=== PATIENT | female | born 1960 | race Caucasian/White ===

== ENCOUNTER 2021-12-01 13:31 | Emergency (ER) | payer MEDICARE, OTHER ==
[2021-12-01] MEDS ORDERED: methylPREDNISolone Sod Succ/PF 125 MG/2 ML VIAL ONE (14:16)
[2021-12-01 14:48] LABS: #Eosinphils 0.1 thou/uL (0.0-0.7); #Lymphocytes 1.2 thou/uL (1.20-3.40); #Monocytes 0.5 thou/uL (0.11-0.59); %Basophils 0.2 % (0.0-1.0); %Eosinophils 2.8 % (0.0-10.0); %Monocytes 10.1 % (0.0-10.0); %Neutrophils 61.8 % (42.0-75.0); Hemoglobin 15.8 g/dL (12.0-16.0); Mean Corpuscular HGB CONC 32.8 g/dL (32.0-36.0); Mean Corpuscular Hemoglobin 33.3 pg (27.0-31.0); Mean Platelet Volume 7.1 fL (7.4-10.4); Platelet Count 217 thou/uL (130-400); RBC Distribution Width 12.6 % (11.5-14.5); Red Blood Cell (RBC) Count 4.73 mill/uL (4.20-5.40); White Blood Cell (WBC) Count 4.8 thou/uL (4.8-10.8)
[2021-12-01 15:01] LABS: ALT (SGPT) 16 U/L (8-55); AST (SGOT) 21 U/L (5-34); Albumin 3.7 g/dL (3.5-5.0); Alkaline Phosphatase 67 U/L (40-110); Anion Gap 15 mmol/L (10-20); BUN (Urea Nitrogen) 12 mg/dL (9.8-20.1); Bilirubin, Total 0.8 mg/dL (0.2-1.2); Calc. Creatinine Clearance 0 mL/min (70-130); Calcium 9.3 mg/dL (7.8-10.44); Carbon Dioxide 21 mmol/L (22-29); Chloride 106 mmol/L (98-107); Globulin 2.6 g/dL (2.4-3.5); Glucose 96 mg/dL (70-105); Lipase Less than 4 U/L (8-78); Protein, Total 6.3 g/dL (6.0-8.3); Sodium 138 mmol/L (136-145)
[2021-12-01 15:06] LABS: PTT 24.7 sec (22.9-36.1)
[2021-12-01 15:07] LABS: D-Dimer Test 0.68 *mcg/mL (0.27-0.43)
[2021-12-01 16:59] LABS: SARS-CoV-2 NAA Rapid Test Not Detected (NotDetected)
== END 2021-12-01 18:13 | disposition home or self-care (01) ==
LOC: ERS 13:31
DX: J18.9 Pneumonia, unspecified organism (principal); I10 Essential (primary) hypertension; Z20.822 Contact with and (suspected) exposure to COVID-19; Z87.891 Personal history of nicotine dependence
CPT/HCPCS: 0240U; 71045; 71275; 83690; 83880; 84484 ×2; 85379; 85610; 85730; 93005; 96374; 99285; 36415; 80053; 84443; 85025; J2930; J7620

== ENCOUNTER 2021-12-12 11:14 | Emergency (ER) | payer MEDICARE, OTHER ==
[2021-12-12] MEDS ORDERED: Acetaminophen 500 MG TAB ONE (13:15)
== END 2021-12-12 14:29 | disposition home or self-care (01) ==
LOC: ERS 11:14
DX: M79.671 Pain in right foot (principal); M54.50 Low back pain, unspecified; M79.89 Other specified soft tissue disorders; I11.0 Hypertensive heart disease with heart failure; I50.9 Heart failure, unspecified; J44.9 Chronic obstructive pulmonary disease, unspecified; I10 Essential (primary) hypertension; D64.9 Anemia, unspecified; Z87.891 Personal history of nicotine dependence

== ENCOUNTER 2021-12-17 22:50 | Inpatient (IN) | payer MEDICARE, MEDICAID ==
[2021-12-17 23:38] LABS: #Eosinphils 0.2 thou/uL (0.0-0.7); #Lymphocytes 1.1 thou/uL (1.20-3.40); #Monocytes 0.5 thou/uL (0.11-0.59); #Neutrophils 6.3 thou/uL (1.40-6.50); %Basophils 0.4 % (0.0-1.0); %Eosinophils 2.4 % (0.0-10.0); %Lymphocytes 13.9 % (21.0-51.0); %Monocytes 5.5 % (0.0-10.0); %Neutrophils 77.8 % (42.0-75.0); Hemoglobin 14.7 g/dL (12.0-16.0); Mean Corpuscular Hemoglobin 34.1 pg (27.0-31.0); Mean Platelet Volume 6.5 fL (7.4-10.4); Platelet Count 259 thou/uL (130-400); RBC Distribution Width 12.3 % (11.5-14.5); White Blood Cell (WBC) Count 8.1 thou/uL (4.8-10.8)
[2021-12-17 23:59] LABS: ALT (SGPT) 10 U/L (8-55); AST (SGOT) 15 U/L (5-34); Albumin 3.9 g/dL (3.5-5.0); Alkaline Phosphatase 72 U/L (40-110); Anion Gap 14 mmol/L (10-20); BUN (Urea Nitrogen) 11 mg/dL (9.8-20.1); Bilirubin, Total 0.8 mg/dL (0.2-1.2); Calc. Creatinine Clearance 0 mL/min (70-130); Calcium 8.8 mg/dL (7.8-10.44); Carbon Dioxide 24 mmol/L (22-29); Chloride 105 mmol/L (98-107); Globulin 2.2 g/dL (2.4-3.5); Glucose 132 mg/dL (70-105); Potassium 4.1 mmol/L (3.5-5.1); Protein, Total 6.1 g/dL (6.0-8.3); Sodium 139 mmol/L (136-145)
[2021-12-18] MEDS ORDERED: methylPREDNISolone Sod Succ/PF 125 MG/2 ML VIAL ONE (02:15)
[2021-12-18 03:31] VITALS: BMI 46.5
[2021-12-18] MEDS ORDERED: Morphine 4 MG/ML VIAL SLOW IVP PRN (03:32)
[2021-12-18] MEDS ORDERED: Calcium Carbonate 500 MG ChewTAB PO PRN (07:41)
[2021-12-18] MEDS ORDERED: Ondansetron PF 4 MG/2 ML Vial IVP PRN (07:41)
[2021-12-18] MEDS ORDERED: Acetaminophen 325 MG TAB PO PRN (07:41)
[2021-12-18] MEDS ORDERED: Ipratropium Bromide 2.5 ml Neb NEB PRN (07:44)
[2021-12-18] MEDS ORDERED: Non-Formulary Item 1 EACH (Albuterol Sulfate [Proair Hfa] 8.5 GM Hfa.Aer.Ad) INH PRN (07:49)
[2021-12-18] MEDS ORDERED: Albuterol 200 PUFF (6.7GM INHALER) INH PRN (08:01)
[2021-12-18] MEDS ORDERED: BIOTIN 1000 MCG PO SCH ×2 (09:00)
[2021-12-18] MEDS ORDERED: Non-Formulary Item 1 EACH (Tiotropium Bromide 4 GM Inhaler) IH SCH (09:00)
[2021-12-18] MEDS ORDERED: Metoprolol Tartrate 100 MG TAB PO SCH (09:00)
[2021-12-18] MEDS: Enoxaparin Sodium 40 MG/0.4 ML SYRINGE SC SCH (09:37)
[2021-12-18] MEDS: methylPREDNISolone Sod Succ 40 MG VIAL IVP SCH ×2 (09:38→21:33)
[2021-12-18] MEDS: Furosemide 40 MG/4 ML VIAL SLOW IVP SCH (09:38)
[2021-12-18] MEDS: Estradiol 1 MG TAB PO SCH (09:39)
[2021-12-18] MEDS: Fenofibrate 48 MG TAB PO SCH (09:39)
[2021-12-18] MEDS: Doxycycline 100 MG CAP PO SCH ×2 (09:39→21:33)
[2021-12-18] MEDS: Ascorbic Acid 500 mg Chewable Tablet PO SCH (09:39)
[2021-12-18] MEDS: Aspirin Chewable 81 MG TAB PO SCH (09:39)
[2021-12-18] MEDS: Gabapentin 300 MG CAP PO SCH ×2 (09:40→21:32)
[2021-12-18] MEDS: Metoprolol Tartrate 50 MG TAB PO SCH ×2 (09:41→21:32)
[2021-12-18 10:01] LABS: Troponin I Less than 0.010 ng/mL (< 0.028)
[2021-12-18] MEDS: HYDROcodone/Acetaminophen 5/325 mg Tablet PO PRN ×2 (10:08→21:30)
[2021-12-18] MEDS: Ipratropium Bromide 2.5 ml Neb NEB SCH ×4 (10:20→23:10)
[2021-12-18 15:12] LABS: SARS-CoV-2 PCR by NAA Not Detected (NotDetected)
[2021-12-18] MEDS: hydrALAZINE 20 MG/ML VIAL SLOW IVP PRN ×2 (16:55→21:41)
[2021-12-18] MEDS ORDERED: Fluticasone Propionate Nasal Spray 16 gm Bottle NASAL PRN (20:36)
[2021-12-18] MEDS: DULoxetine 60 MG CAP PO SCH (21:31)
[2021-12-18] MEDS: traZODone HCl 150 MG TAB PO SCH (21:54)
[2021-12-19] MEDS: Ipratropium Bromide 2.5 ml Neb NEB SCH ×6 (03:45→23:21)
[2021-12-19 04:36] LABS: #Lymphocytes 0.7 thou/uL (1.20-3.40); #Monocytes 0.3 thou/uL (0.11-0.59); #Neutrophils 9.8 thou/uL (1.40-6.50); %Eosinophils 0.3 % (0.0-10.0); %Lymphocytes 6.2 % (21.0-51.0); %Monocytes 3.1 % (0.0-10.0); %Neutrophils 90.4 % (42.0-75.0); Mean Corpuscular Hemoglobin 32.8 pg (27.0-31.0); Mean Platelet Volume 6.8 fL (7.4-10.4); Platelet Count 259 thou/uL (130-400); RBC Distribution Width 12.1 % (11.5-14.5); Red Blood Cell (RBC) Count 4.56 mill/uL (4.20-5.40); White Blood Cell (WBC) Count 10.8 thou/uL (4.8-10.8)
[2021-12-19 04:58] LABS: Anion Gap 12 mmol/L (10-20); BUN (Urea Nitrogen) 18 mg/dL (9.8-20.1); Calc. Creatinine Clearance 111 mL/min (70-130); Calcium 9.5 mg/dL (7.8-10.44); Carbon Dioxide 28 mmol/L (22-29); Chloride 102 mmol/L (98-107); Glucose 170 mg/dL (70-105); Potassium 3.9 mmol/L (3.5-5.1); Sodium 138 mmol/L (136-145)
[2021-12-19] MEDS: Levothyroxine Sodium 100 MCG TAB PO SCH (05:24)
[2021-12-19] MEDS ORDERED: IRON 18 MG PO SCH (08:00)
[2021-12-19] MEDS: Enoxaparin Sodium 40 MG/0.4 ML SYRINGE SC SCH (10:14)
[2021-12-19] MEDS: Doxycycline 100 MG CAP PO SCH ×2 (10:14→20:53)
[2021-12-19] MEDS: Estradiol 1 MG TAB PO SCH (10:15)
[2021-12-19] MEDS: Ascorbic Acid 500 mg Chewable Tablet PO SCH (10:15)
[2021-12-19] MEDS: Fenofibrate 48 MG TAB PO SCH (10:15)
[2021-12-19] MEDS: Aspirin Chewable 81 MG TAB PO SCH (10:15)
[2021-12-19] MEDS: Furosemide 40 MG/4 ML VIAL SLOW IVP SCH (10:15)
[2021-12-19] MEDS: Gabapentin 300 MG CAP PO SCH ×2 (10:26→20:53)
[2021-12-19] MEDS: methylPREDNISolone Sod Succ 40 MG VIAL IVP SCH ×2 (10:27→20:54)
[2021-12-19] MEDS: Metoprolol Tartrate 50 MG TAB PO SCH ×2 (10:27→20:53)
[2021-12-19] MEDS: HYDROcodone/Acetaminophen 5/325 mg Tablet PO PRN ×2 (15:28→20:56)
[2021-12-19] MEDS: DULoxetine 60 MG CAP PO SCH (20:53)
[2021-12-19] MEDS: traZODone HCl 150 MG TAB PO SCH (20:54)
[2021-12-20] MEDS: Ipratropium Bromide 2.5 ml Neb NEB SCH ×6 (03:35→22:46)
[2021-12-20] MEDS: Levothyroxine Sodium 100 MCG TAB PO SCH (06:32)
[2021-12-20] MEDS: Aspirin Chewable 81 MG TAB PO SCH (12:16)
[2021-12-20] MEDS: Furosemide 40 MG/4 ML VIAL SLOW IVP SCH (12:16)
[2021-12-20] MEDS: methylPREDNISolone Sod Succ 40 MG VIAL IVP SCH ×2 (12:16→19:14)
[2021-12-20] MEDS: Enoxaparin Sodium 40 MG/0.4 ML SYRINGE SC SCH (12:17)
[2021-12-20] MEDS: Estradiol 1 MG TAB PO SCH (12:17)
[2021-12-20] MEDS: Gabapentin 300 MG CAP PO SCH ×2 (12:17→19:09)
[2021-12-20] MEDS: Fenofibrate 48 MG TAB PO SCH (12:18)
[2021-12-20] MEDS: Metoprolol Tartrate 50 MG TAB PO SCH ×2 (12:18→19:14)
[2021-12-20] MEDS: Doxycycline 100 MG CAP PO SCH ×2 (12:18→19:14)
[2021-12-20] MEDS: Ascorbic Acid 500 mg Chewable Tablet PO SCH (12:18)
[2021-12-20] MEDS: HYDROcodone/Acetaminophen 5/325 mg Tablet PO PRN (19:09)
[2021-12-20] MEDS: DULoxetine 60 MG CAP PO SCH (19:14)
[2021-12-20] MEDS: traZODone HCl 150 MG TAB PO SCH (19:14)
[2021-12-21] MEDS: Ipratropium Bromide 2.5 ml Neb NEB SCH ×6 (03:48→23:19)
[2021-12-21] MEDS: Levothyroxine Sodium 100 MCG TAB PO SCH (06:15)
[2021-12-21] MEDS: Fenofibrate 48 MG TAB PO SCH (10:09)
[2021-12-21] MEDS: Gabapentin 300 MG CAP PO SCH ×2 (10:09→19:11)
[2021-12-21] MEDS: Estradiol 1 MG TAB PO SCH (10:10)
[2021-12-21] MEDS: Furosemide 40 MG/4 ML VIAL SLOW IVP SCH (10:10)
[2021-12-21] MEDS: Doxycycline 100 MG CAP PO SCH ×2 (10:10→19:11)
[2021-12-21] MEDS: Metoprolol Tartrate 50 MG TAB PO SCH ×2 (10:10→19:11)
[2021-12-21] MEDS: Ascorbic Acid 500 mg Chewable Tablet PO SCH (10:10)
[2021-12-21] MEDS: Aspirin Chewable 81 MG TAB PO SCH (10:10)
[2021-12-21] MEDS: methylPREDNISolone Sod Succ 40 MG VIAL IVP SCH ×2 (10:10→19:12)
[2021-12-21] MEDS: Enoxaparin Sodium 40 MG/0.4 ML SYRINGE SC SCH (10:10)
[2021-12-21] MEDS: HYDROcodone/Acetaminophen 5/325 mg Tablet PO PRN ×3 (10:22→20:39)
[2021-12-21] MEDS: hydrALAZINE 20 MG/ML VIAL SLOW IVP PRN (17:22)
[2021-12-21] MEDS: DULoxetine 60 MG CAP PO SCH (19:11)
[2021-12-21] MEDS: traZODone HCl 150 MG TAB PO SCH (19:11)
[2021-12-22] MEDS: Ipratropium Bromide 2.5 ml Neb NEB SCH ×4 (03:54→15:10)
[2021-12-22] MEDS: Levothyroxine Sodium 100 MCG TAB PO SCH (06:32)
[2021-12-22] MEDS: Aspirin Chewable 81 MG TAB PO SCH (09:38)
[2021-12-22] MEDS: Estradiol 1 MG TAB PO SCH (09:38)
[2021-12-22] MEDS: Gabapentin 300 MG CAP PO SCH (09:38)
[2021-12-22] MEDS: Doxycycline 100 MG CAP PO SCH (09:39)
[2021-12-22] MEDS: Ascorbic Acid 500 mg Chewable Tablet PO SCH (09:39)
[2021-12-22] MEDS: Enoxaparin Sodium 40 MG/0.4 ML SYRINGE SC SCH (09:39)
[2021-12-22] MEDS: Fenofibrate 48 MG TAB PO SCH (09:39)
[2021-12-22] MEDS: Metoprolol Tartrate 50 MG TAB PO SCH (09:39)
[2021-12-22] MEDS: methylPREDNISolone Sod Succ 40 MG VIAL IVP SCH (09:40)
[2021-12-22] MEDS: HYDROcodone/Acetaminophen 5/325 mg Tablet PO PRN (10:06)
[2021-12-22] MEDS: Furosemide 40 MG/4 ML VIAL SLOW IVP SCH (10:07)
[2021-12-22 13:31] VITALS: BP 142/84; TEMP 98.6
== END 2021-12-22 15:45 | disposition home or self-care (01) | DRG 189 ==
LOC: ERS 22:50 → 2NO 12-18 02:10
PROVIDERS: ADMIT Internal Medicine; ATTEND Internal Medicine
DX: J96.21 Acute and chronic respiratory failure with hypoxia (principal); J44.1 Chronic obstructive pulmonary disease with (acute) exacerbation; N17.9 Acute kidney failure, unspecified; Z20.822 Contact with and (suspected) exposure to COVID-19; I34.0 Nonrheumatic mitral (valve) insufficiency; E89.0 Postprocedural hypothyroidism; F12.10 Cannabis abuse, uncomplicated; Z60.2 Problems related to living alone; M79.7 Fibromyalgia; F41.9 Anxiety disorder, unspecified; F32.A Depression, unspecified; Z87.891 Personal history of nicotine dependence; Z90.49 Acquired absence of other specified parts of digestive tract; Z99.81 Dependence on supplemental oxygen; Z88.0 Allergy status to penicillin; Z79.899 Other long term (current) drug therapy; Z79.82 Long term (current) use of aspirin; Z79.890 Hormone replacement therapy; Z98.890 Other specified postprocedural states; Z82.49 Family history of ischemic heart disease and other diseases of the circulatory system; Z83.6 Family history of other diseases of the respiratory system
CPT/HCPCS: 36415; 71045; 71275; 80048; 80053; 83880; 84443; 84484; 85025; 85379; 93005; 93306; 93970; 94640; 96365; 96375; J0360; J1650; J1940; J1956; J2270; J2920; J2930; U0003; U0005

== ENCOUNTER 2022-02-24 11:04 | Inpatient (IN) | payer OTHER, MEDICAID ==
[2022-02-24 11:41] LABS: #Lymphocytes 0.5 thou/uL (1.20-3.40); #Monocytes 0.3 thou/uL (0.11-0.59); #Neutrophils 2.4 thou/uL (1.40-6.50); %Basophils 0.2 % (0.0-1.0); %Eosinophils 0.6 % (0.0-10.0); %Lymphocytes 14.4 % (21.0-51.0); %Monocytes 8.1 % (0.0-10.0); %Neutrophils 76.7 % (42.0-75.0); Hemoglobin 15.1 g/dL (12.0-16.0); Mean Corpuscular HGB CONC 31.2 g/dL (32.0-36.0); Mean Corpuscular Hemoglobin 31.9 pg (27.0-31.0); Mean Platelet Volume 7.3 fL (7.4-10.4); Platelet Count 185 thou/uL (130-400); RBC Distribution Width 12.2 % (11.5-14.5); Red Blood Cell (RBC) Count 4.72 mill/uL (4.20-5.40); White Blood Cell (WBC) Count 3.2 thou/uL (4.8-10.8)
[2022-02-24 11:54] LABS: ALT (SGPT) 11 U/L (8-55); AST (SGOT) 17 U/L (5-34); Albumin 4.2 g/dL (3.4-4.8); Alkaline Phosphatase 72 U/L (40-110); Anion Gap 14 mmol/L (10-20); BUN (Urea Nitrogen) 8 mg/dL (9.8-20.1); Bilirubin, Total 0.5 mg/dL (0.2-1.2); Calc. Creatinine Clearance 0 mL/min (70-130); Calcium 9.3 mg/dL (7.8-10.44); Carbon Dioxide 28 mmol/L (23-31); Chloride 99 mmol/L (98-107); Estimated GFR 75; Globulin 2.9 g/dL (2.4-3.5); Glucose 90 mg/dL (80-115); Lipase 9 U/L (8-78); Potassium 4.5 mmol/L (3.5-5.1); Protein, Total 7.1 g/dL (5.8-8.1); Sodium 136 mmol/L (136-145)
[2022-02-24] MEDS ORDERED: diphenhydrAMINE 50 MG/ML VIAL ONE (12:08)
[2022-02-24] MEDS ORDERED: Metoclopramide HCl 10 MG/2 ML VIAL ONE (12:08)
[2022-02-24] MEDS ORDERED: Acetaminophen 500 MG TAB ONE (12:08)
[2022-02-24 14:24] LABS: Bilirubin Negative (Negative); Blood, Urine Negative (Negative); Clarity Clear (Clear); Glucose, Urine (Dipstick) Normal (Negative); Ketone, Urine Negative (Negative); Leukocyte Negative Leu/uL (Negative); Nitrite Negative (Negative); Protein, Urine (Dipstick) Negative (Neg-Trace); Specific Gravity, Urine 1.008 (1.002-1.036); Urobilinogen Normal mg/dL (Less than 2); pH, Urine 6.5 (5.0-9.0)
[2022-02-24 14:33] LABS: SARS-CoV-2 NAA Rapid Test DETECTED (NotDetected)
[2022-02-24] MEDS ORDERED: guaiFENesin 200 MG TAB PO PRN (17:15)
[2022-02-24] MEDS ORDERED: Ondansetron PF 4 MG/2 ML Vial IVP PRN (17:20)
[2022-02-24] MEDS ORDERED: Senokot S 8.6-50 MG TAB PO PRN (17:20)
[2022-02-24] MEDS ORDERED: Ondansetron ODT 4 MG TAB PO PRN (17:20)
[2022-02-24] MEDS ORDERED: Cefepime 2 GM VIAL ONE (17:21)
[2022-02-24] MEDS ORDERED: Sodium Chloride 0.9% 1,000 ML IV SCH (17:30)
[2022-02-24] MEDS ORDERED: Meclizine HCl 25 MG TAB PO PRN (17:59)
[2022-02-24] MEDS ORDERED: Nicotine 14 MG PATCH TD SCH (18:00)
[2022-02-24] MEDS ORDERED: Fluticasone Propionate Nasal Spray 16 gm Bottle NASAL PRN (18:12)
[2022-02-24] MEDS ORDERED: Non-Formulary Item 1 EACH (Budesonide/Formoterol Fumarate [Budesonide-Formoterol 160-4.5] IH SCH (21:00)
[2022-02-24] MEDS ORDERED: Non-Formulary Item 1 EACH (Gabapentin [Gabapentin] 600 MG Tablet) PO SCH (21:00)
[2022-02-24] MEDS ORDERED: Cefepime 2 GM in Sodium Chloride 0.9% 100 ML IVPB SCH (21:00)
[2022-02-24] MEDS ORDERED: Enoxaparin Sodium 40 MG/0.4 ML SYRINGE SC SCH (21:00)
[2022-02-24 22:27] VITALS: BMI 46.6
[2022-02-24] MEDS: traZODone HCl 150 MG TAB PO SCH (23:58)
[2022-02-24] MEDS: Famotidine 20 MG TAB PO SCH (23:59)
[2022-02-24] MEDS: DULoxetine 60 MG CAP PO SCH (23:59)
[2022-02-25] MEDS: Albuterol 200 PUFF (6.7GM INHALER) INH PRN (00:19)
[2022-02-25] MEDS: Cefepime 2 GM VIAL IVPB SCH ×2 (04:50→16:56)
[2022-02-25] MEDS: Levothyroxine Sodium 100 MCG TAB PO SCH (05:00)
[2022-02-25 06:51] LABS: Anion Gap 15 mmol/L (10-20); BUN (Urea Nitrogen) 9 mg/dL (9.8-20.1); Calc. Creatinine Clearance 136 mL/min (70-130); Calcium 8.6 mg/dL (7.8-10.44); Carbon Dioxide 21 mmol/L (23-31); Chloride 107 mmol/L (98-107); Estimated GFR 88; Glucose 99 mg/dL (80-115); Potassium 4.1 mmol/L (3.5-5.1); Sodium 139 mmol/L (136-145)
[2022-02-25 07:17] LABS: Hemoglobin 15.2 g/dL (12.0-16.0); Mean Corpuscular HGB CONC 31.3 g/dL (32.0-36.0); Mean Corpuscular Hemoglobin 31.8 pg (27.0-31.0); Mean Platelet Volume 7.6 fL (7.4-10.4); Platelet Count 153 thou/uL (130-400); RBC Distribution Width 12.3 % (11.5-14.5); Red Blood Cell (RBC) Count 4.79 mill/uL (4.20-5.40); White Blood Cell (WBC) Count 3.3 thou/uL (4.8-10.8)
[2022-02-25] MEDS ORDERED: Labetalol HCl 100 MG/20 ML VIAL SLOW IVP PRN (07:34)
[2022-02-25] MEDS ORDERED: Benzonatate 100 MG CAP PO PRN (09:00)
[2022-02-25] MEDS ORDERED: Non-Formulary Item 1 EACH (Tiotropium Bromide 4 GM Inhaler) IH SCH (09:00)
[2022-02-25] MEDS ORDERED: Cepastat Lozenges 1 LOZ PO PRN (09:00)
[2022-02-25] MEDS ORDERED: Nicotine 14 MG PATCH TD PRN (09:00)
[2022-02-25] MEDS ORDERED: Non-Formulary Item 1 EACH (Omeprazole [Omeprazole] 40 MG Capsule.Dr) PO SCH (09:00)
[2022-02-25] MEDS ORDERED: Non-Formulary Item 1 EACH (Quetiapine Fumarate [Seroquel] 50 MG Tablet) PO SCH (09:00)
[2022-02-25] MEDS ORDERED: Metoprolol Tartrate 100 MG TAB PO SCH (09:00)
[2022-02-25] MEDS ORDERED: Aspirin Chewable 81 MG TAB PO SCH (09:00)
[2022-02-25 09:26] LABS: Band 4 % (5-11); Lymphocytes 32 % (21-51); MDiff Complete? YES; Monocytes 9 % (0-10); Neutrophil 54 % (42-75); Platelet Morphology Comment Appears Adequate; RBC Morphology Normal; Reactive Lymphocytes 1 % (0-10)
[2022-02-25] MEDS: Ascorbic Acid 500 mg Chewable Tablet PO SCH (09:49)
[2022-02-25] MEDS: Dexamethasone 10 MG/ML VIAL SLOW IVP SCH (09:49)
[2022-02-25] MEDS: Zinc Sulfate 220 MG CAP PO SCH (09:49)
[2022-02-25] MEDS: Famotidine 20 MG TAB PO SCH (09:49)
[2022-02-25] MEDS ORDERED: Albuterol Sulfate 2.5 mg/3 ml Neb NEB SCH (10:30)
[2022-02-25] MEDS ORDERED: REMDESIVIR 200 MG in Sodium Chloride 0.9% 250 ML 210 ML IV SCH (12:00)
[2022-02-25] MEDS: Albuterol 200 PUFF (6.7GM INHALER) INH SCH ×4 (12:47→22:15)
[2022-02-25] MEDS ORDERED: Fluticasone Propionate Nasal Spray 16 gm Bottle NASAL PRN ×2 (15:45→16:00)
[2022-02-25] MEDS ORDERED: Carvedilol 6.25 MG TAB PO SCH (17:00)
[2022-02-25] MEDS: Mometasone 200 MCG/Formoterol 5 MCG 120 PUFF INHALER INH SCH (17:52)
[2022-02-25] MEDS ORDERED: Dexamethasone 10 MG in Sodium Chloride 0.9% 50 ML IVPB SCH (17:57)
[2022-02-25] MEDS: Enoxaparin Sodium 40 MG/0.4 ML SYRINGE SC SCH (20:26)
[2022-02-25] MEDS: guaiFENesin ER 600 MG TAB PO SCH (20:26)
[2022-02-25] MEDS: DULoxetine 60 MG CAP PO SCH (20:27)
[2022-02-25] MEDS: Folic Acid 1 MG TAB PO SCH (20:27)
[2022-02-25] MEDS: NIRMATRELVIR 150 MG/RITONAVIR 100 MG TABLET PO SCH (20:27)
[2022-02-25] MEDS: Cyanocobalamin (Vitamin B-12) 1,000 MCG TAB PO SCH (20:27)
[2022-02-25] MEDS: traZODone HCl 150 MG TAB PO SCH (20:27)
[2022-02-25] MEDS: pyridOXINE 50 MG (B6) TAB PO SCH (20:27)
[2022-02-25] MEDS: hydrALAZINE 20 MG/ML VIAL SLOW IVP PRN (22:15)
[2022-02-26] MEDS: Albuterol 200 PUFF (6.7GM INHALER) INH SCH ×6 (02:45→22:53)
[2022-02-26] MEDS: Cefepime 2 GM VIAL IVPB SCH ×2 (05:15→16:25)
[2022-02-26] MEDS: Levothyroxine Sodium 100 MCG TAB PO SCH (05:15)
[2022-02-26] MEDS: Mometasone 200 MCG/Formoterol 5 MCG 120 PUFF INHALER INH SCH ×2 (05:25→18:02)
[2022-02-26 06:42] LABS: Anion Gap 15 mmol/L (10-20); BUN (Urea Nitrogen) 9 mg/dL (9.8-20.1); Calc. Creatinine Clearance 145 mL/min (70-130); Calcium 9.1 mg/dL (7.8-10.44); Carbon Dioxide 23 mmol/L (23-31); Chloride 103 mmol/L (98-107); Estimated GFR 95; Glucose 118 mg/dL (80-115); Magnesium 1.7 mg/dL (1.6-2.6); Potassium 4.2 mmol/L (3.5-5.1); Sodium 137 mmol/L (136-145)
[2022-02-26 06:47] LABS: Band 1 % (5-11); Hemoglobin 15.3 g/dL (12.0-16.0); Hypochromia SLIGHT = 6-15 cells (100X) (0-5/hpf); Lymphocytes 20 % (21-51); MDiff Complete? YES; Macrocytosis SLIGHT = 6-15 cells (100X) (0-5/hpf); Mean Corpuscular HGB CONC 31.3 g/dL (32.0-36.0); Mean Corpuscular Hemoglobin 31.7 pg (27.0-31.0); Mean Platelet Volume 7.2 fL (7.4-10.4); Monocytes 6 % (0-10); Neutrophil 73 % (42-75); Ovalocytes SLIGHT = 2-5 cells (100X) (0-1/hpf); Platelet Count 194 thou/uL (130-400); Platelet Morphology Comment Appears Adequate; Polychromasia SLIGHT = 2-3 cells (100X) (0-2/hpf); Red Blood Cell (RBC) Count 4.83 mill/uL (4.20-5.40); White Blood Cell (WBC) Count 2.9 thou/uL (4.8-10.8)
[2022-02-26] MEDS ORDERED: Electrolyte Replacement Protocol 1 EACH FS SCH (08:00)
[2022-02-26] MEDS ORDERED: Magnesium 2 GM/50 ML(in water) 2 GM in Premix Bag 1 BAG IVPB SCH (08:15)
[2022-02-26] MEDS: Enoxaparin Sodium 40 MG/0.4 ML SYRINGE SC SCH ×2 (08:48→20:11)
[2022-02-26] MEDS: Loratadine 10 MG TAB PO SCH (08:49)
[2022-02-26] MEDS: guaiFENesin ER 600 MG TAB PO SCH ×2 (08:49→20:11)
[2022-02-26] MEDS: Dexamethasone 10 MG/ML VIAL SLOW IVP SCH (08:49)
[2022-02-26] MEDS: Carvedilol 6.25 MG TAB PO SCH ×2 (08:49→16:25)
[2022-02-26] MEDS: Ascorbic Acid 500 mg Chewable Tablet PO SCH (08:49)
[2022-02-26] MEDS: NIRMATRELVIR 150 MG/RITONAVIR 100 MG TABLET PO SCH ×2 (08:53→20:11)
[2022-02-26] MEDS ORDERED: REMDESIVIR 100 MG in Sodium Chloride 0.9% 250 ML 230 ML IV SCH (09:00)
[2022-02-26] MEDS: Zinc Sulfate 220 MG CAP PO SCH (09:24)
[2022-02-26] MEDS: hydrALAZINE 20 MG/ML VIAL SLOW IVP PRN (18:05)
[2022-02-26] MEDS: pyridOXINE 50 MG (B6) TAB PO SCH (20:11)
[2022-02-26] MEDS: Cyanocobalamin (Vitamin B-12) 1,000 MCG TAB PO SCH (20:11)
[2022-02-26] MEDS: traZODone HCl 150 MG TAB PO SCH (20:11)
[2022-02-26] MEDS: DULoxetine 60 MG CAP PO SCH (20:11)
[2022-02-26] MEDS: Folic Acid 1 MG TAB PO SCH (20:11)
[2022-02-27] MEDS: Albuterol 200 PUFF (6.7GM INHALER) INH SCH ×6 (01:48→23:27)
[2022-02-27] MEDS: hydrALAZINE 20 MG/ML VIAL SLOW IVP PRN (04:52)
[2022-02-27] MEDS: Levothyroxine Sodium 100 MCG TAB PO SCH (05:03)
[2022-02-27] MEDS: Mometasone 200 MCG/Formoterol 5 MCG 120 PUFF INHALER INH SCH ×2 (05:05→18:14)
[2022-02-27 06:33] LABS: #Lymphocytes 0.7 thou/uL (1.20-3.40); #Monocytes 0.2 thou/uL (0.11-0.59); #Neutrophils 2.7 thou/uL (1.40-6.50); %Eosinophils 0.5 % (0.0-10.0); %Lymphocytes 18.1 % (21.0-51.0); %Monocytes 6.7 % (0.0-10.0); %Neutrophils 74.7 % (42.0-75.0); Hemoglobin 15.7 g/dL (12.0-16.0); Mean Corpuscular HGB CONC 31.4 g/dL (32.0-36.0); Mean Corpuscular Hemoglobin 31.8 pg (27.0-31.0); Mean Platelet Volume 7.2 fL (7.4-10.4); Platelet Count 170 thou/uL (130-400); Red Blood Cell (RBC) Count 4.95 mill/uL (4.20-5.40); White Blood Cell (WBC) Count 3.6 thou/uL (4.8-10.8)
[2022-02-27 07:03] LABS: Anion Gap 16 mmol/L (10-20); BUN (Urea Nitrogen) 15 mg/dL (9.8-20.1); Calc. Creatinine Clearance 156 mL/min (70-130); Calcium 8.9 mg/dL (7.8-10.44); Carbon Dioxide 23 mmol/L (23-31); Chloride 103 mmol/L (98-107); Estimated GFR 99; Glucose 124 mg/dL (80-115); Potassium 4.1 mmol/L (3.5-5.1); Sodium 138 mmol/L (136-145)
[2022-02-27] MEDS: NIRMATRELVIR 150 MG/RITONAVIR 100 MG TABLET PO SCH ×2 (09:02→19:29)
[2022-02-27] MEDS: Enoxaparin Sodium 40 MG/0.4 ML SYRINGE SC SCH ×2 (09:02→19:26)
[2022-02-27] MEDS: Zinc Sulfate 220 MG CAP PO SCH (09:02)
[2022-02-27] MEDS: Loratadine 10 MG TAB PO SCH (09:02)
[2022-02-27] MEDS: Dexamethasone 4 MG TAB PO SCH (09:02)
[2022-02-27] MEDS: Ascorbic Acid 500 mg Chewable Tablet PO SCH (09:03)
[2022-02-27] MEDS: guaiFENesin ER 600 MG TAB PO SCH ×2 (09:03→19:27)
[2022-02-27] MEDS: Carvedilol 25 MG TAB PO SCH ×2 (09:03→17:43)
[2022-02-27] MEDS: pyridOXINE 50 MG (B6) TAB PO SCH (19:27)
[2022-02-27] MEDS: Cyanocobalamin (Vitamin B-12) 1,000 MCG TAB PO SCH (19:27)
[2022-02-27] MEDS: Folic Acid 1 MG TAB PO SCH (19:27)
[2022-02-27] MEDS: DULoxetine 60 MG CAP PO SCH (19:27)
[2022-02-27] MEDS: traZODone HCl 150 MG TAB PO SCH (19:28)
[2022-02-28] MEDS: Albuterol 200 PUFF (6.7GM INHALER) INH SCH ×7 (02:16→22:50)
[2022-02-28] MEDS: Levothyroxine Sodium 100 MCG TAB PO SCH (05:26)
[2022-02-28] MEDS: Mometasone 200 MCG/Formoterol 5 MCG 120 PUFF INHALER INH SCH ×2 (05:27→17:36)
[2022-02-28] MEDS: Ascorbic Acid 500 mg Chewable Tablet PO SCH (08:58)
[2022-02-28] MEDS: Loratadine 10 MG TAB PO SCH (08:58)
[2022-02-28] MEDS: guaiFENesin ER 600 MG TAB PO SCH ×2 (08:58→19:57)
[2022-02-28] MEDS: Enoxaparin Sodium 40 MG/0.4 ML SYRINGE SC SCH ×2 (08:58→19:58)
[2022-02-28] MEDS: Dexamethasone 4 MG TAB PO SCH (08:58)
[2022-02-28] MEDS: Zinc Sulfate 220 MG CAP PO SCH (08:59)
[2022-02-28] MEDS: Carvedilol 25 MG TAB PO SCH ×2 (08:59→17:36)
[2022-02-28] MEDS: NIRMATRELVIR 150 MG/RITONAVIR 100 MG TABLET PO SCH ×2 (08:59→19:59)
[2022-02-28] MEDS: traZODone HCl 150 MG TAB PO SCH (19:57)
[2022-02-28] MEDS: Folic Acid 1 MG TAB PO SCH (19:58)
[2022-02-28] MEDS: pyridOXINE 50 MG (B6) TAB PO SCH (19:59)
[2022-02-28] MEDS: Cyanocobalamin (Vitamin B-12) 1,000 MCG TAB PO SCH (19:59)
[2022-02-28] MEDS: DULoxetine 60 MG CAP PO SCH (20:04)
[2022-02-28] MEDS: hydrALAZINE 20 MG/ML VIAL SLOW IVP PRN (20:04)
[2022-02-28] MEDS: Albuterol 200 PUFF (6.7GM INHALER) INH PRN (22:50)
[2022-03-01] MEDS: Albuterol 200 PUFF (6.7GM INHALER) INH SCH ×6 (03:01→21:45)
[2022-03-01] MEDS: Levothyroxine Sodium 100 MCG TAB PO SCH (05:49)
[2022-03-01] MEDS: Mometasone 200 MCG/Formoterol 5 MCG 120 PUFF INHALER INH SCH ×2 (05:51→17:34)
[2022-03-01] MEDS: guaiFENesin ER 600 MG TAB PO SCH ×2 (08:49→20:31)
[2022-03-01] MEDS: Ascorbic Acid 500 mg Chewable Tablet PO SCH (08:49)
[2022-03-01] MEDS: Enoxaparin Sodium 40 MG/0.4 ML SYRINGE SC SCH ×2 (08:49→20:31)
[2022-03-01] MEDS: Zinc Sulfate 220 MG CAP PO SCH (08:49)
[2022-03-01] MEDS: NIRMATRELVIR 150 MG/RITONAVIR 100 MG TABLET PO SCH ×2 (08:49→20:30)
[2022-03-01] MEDS: Dexamethasone 4 MG TAB PO SCH (08:49)
[2022-03-01] MEDS: Loratadine 10 MG TAB PO SCH (08:49)
[2022-03-01] MEDS: Carvedilol 25 MG TAB PO SCH ×2 (08:49→17:34)
[2022-03-01] MEDS ORDERED: NIFEdipine XL 60 MG TAB PO SCH ×2 (09:43→09:45)
[2022-03-01] MEDS: Folic Acid 1 MG TAB PO SCH (20:31)
[2022-03-01] MEDS: traZODone HCl 150 MG TAB PO SCH (20:31)
[2022-03-01] MEDS: pyridOXINE 50 MG (B6) TAB PO SCH (20:31)
[2022-03-01] MEDS: DULoxetine 60 MG CAP PO SCH (20:31)
[2022-03-01] MEDS: Cyanocobalamin (Vitamin B-12) 1,000 MCG TAB PO SCH (20:31)
[2022-03-02] MEDS: Albuterol 200 PUFF (6.7GM INHALER) INH SCH ×3 (02:57→11:11)
[2022-03-02] MEDS: Levothyroxine Sodium 100 MCG TAB PO SCH (05:36)
[2022-03-02] MEDS: Mometasone 200 MCG/Formoterol 5 MCG 120 PUFF INHALER INH SCH (05:37)
[2022-03-02 08:17] VITALS: BP 116/79; TEMP 98.2
[2022-03-02] MEDS: Carvedilol 25 MG TAB PO SCH (08:26)
[2022-03-02] MEDS: Zinc Sulfate 220 MG CAP PO SCH (08:26)
[2022-03-02] MEDS: guaiFENesin ER 600 MG TAB PO SCH (08:26)
[2022-03-02] MEDS: Ascorbic Acid 500 mg Chewable Tablet PO SCH (08:26)
[2022-03-02] MEDS: Enoxaparin Sodium 40 MG/0.4 ML SYRINGE SC SCH (08:26)
[2022-03-02] MEDS: NIRMATRELVIR 150 MG/RITONAVIR 100 MG TABLET PO SCH (08:27)
[2022-03-02] MEDS: Dexamethasone 4 MG TAB PO SCH (08:27)
[2022-03-02] MEDS: Loratadine 10 MG TAB PO SCH (08:27)
[2022-03-02] MEDS ORDERED: NIFEdipine XL 60 MG TAB PO SCH (09:00)
== END 2022-03-02 15:19 | disposition home or self-care (01) | DRG 871 ==
LOC: ERS 11:04 → OBSVTOIN 16:49 → T4-B 16:49
PROVIDERS: ADMIT Family Medicine; ATTEND Family Medicine
PROC: 5A09357 Assistance with Respiratory Ventilation, Less than 24 Consecutive Hours, Continuous Positive Airway Pressure (ICD-10-PCS; 2022-02-24)
PROC: 3E03329 Introduction of Other Anti-infective into Peripheral Vein, Percutaneous Approach (ICD-10-PCS; 2022-02-24)
PROC: 8E0ZXY6 Isolation (ICD-10-PCS; 2022-02-24)
PROC: XW033E5 Introduction of Remdesivir Anti-infective into Peripheral Vein, Percutaneous Approach, New Technology Group 5 (ICD-10-PCS; principal; 2022-02-25)
DX: A41.89 Other specified sepsis (principal); U07.1 COVID-19; J96.21 Acute and chronic respiratory failure with hypoxia; J12.82 Pneumonia due to coronavirus disease 2019; Z68.42 Body mass index [BMI] 45.0-49.9, adult; J44.1 Chronic obstructive pulmonary disease with (acute) exacerbation; J44.0 Chronic obstructive pulmonary disease with (acute) lower respiratory infection; R65.20 Severe sepsis without septic shock; E89.0 Postprocedural hypothyroidism; F43.10 Post-traumatic stress disorder, unspecified; F32.A Depression, unspecified; F12.10 Cannabis abuse, uncomplicated; M79.7 Fibromyalgia; F41.9 Anxiety disorder, unspecified; I50.9 Heart failure, unspecified; G47.33 Obstructive sleep apnea (adult) (pediatric); E66.01 Morbid (severe) obesity due to excess calories; H70.93 Unspecified mastoiditis, bilateral; S00.03XA Contusion of scalp, initial encounter; W18.30XA Fall on same level, unspecified, initial encounter; Z90.49 Acquired absence of other specified parts of digestive tract; Z87.891 Personal history of nicotine dependence; Z99.81 Dependence on supplemental oxygen; Z88.0 Allergy status to penicillin; Z79.899 Other long term (current) drug therapy; Z79.82 Long term (current) use of aspirin; Z79.890 Hormone replacement therapy; Z98.890 Other specified postprocedural states; Z83.6 Family history of other diseases of the respiratory system; Z82.49 Family history of ischemic heart disease and other diseases of the circulatory system; Z99.89 Dependence on other enabling machines and devices
CPT/HCPCS: 36415; 36416; 70450; 71045; 80048; 80053; 81003; 83615; 83690; 83735; 83880; 84484; 85025; 86140; 93005; 93010; 94760; 96365; 96366; 96375; J0248; J0360; J0692; J1100; J1200; J1650; J2765; J3475; J7050; J8540

== ENCOUNTER 2022-06-04 20:51 | Emergency (ER) | payer OTHER ==
[2022-06-04] MEDS ORDERED: Acetaminophen 500 MG TAB ONE (22:03)
[2022-06-04] MEDS ORDERED: Ketorolac Tromethamine 30 MG/ML VIAL ONE (22:52)
[2022-06-04] MEDS ORDERED: Benzonatate 100 MG CAP ONE (23:27)
== END 2022-06-04 22:54 | disposition home or self-care (01) ==
LOC: ERS 20:51
DX: M25.512 Pain in left shoulder (principal); M25.522 Pain in left elbow; I11.0 Hypertensive heart disease with heart failure; I50.9 Heart failure, unspecified; J44.9 Chronic obstructive pulmonary disease, unspecified; Z87.891 Personal history of nicotine dependence; W01.0XXA Fall on same level from slipping, tripping and stumbling without subsequent striking against object, initial encounter
CPT/HCPCS: 72125; 96372; J1885

== ENCOUNTER 2023-06-11 09:19 | Emergency (ER) | payer OTHER ==
[2023-06-11 10:43] LABS: #Basophils 0.1 thou/uL (0.0-0.2); #Eosinphils 0.1 thou/uL (0.0-0.7); #Monocytes 0.4 thou/uL (0.11-0.59); #Neutrophils 8.2 thou/uL (1.40-6.50); %Basophils 0.5 % (0.0-1.0); %Eosinophils 1.2 % (0.0-10.0); %Lymphocytes 13.3 % (21.0-51.0); %Monocytes 4.3 % (0.0-10.0); %Neutrophils 80.1 % (42.0-75.0); Hematocrit 45.8 % (36.0-47.0); Hemoglobin 14.6 g/dL (12.0-16.0); Mean Corpuscular HGB CONC 31.9 g/dL (32.0-36.0); Mean Corpuscular Hemoglobin 31.7 pg (27.0-31.0); Mean Corpuscular Volume 99.6 fl (78.0-98.0); Mean Platelet Volume 8.8 fL (7.4-10.4); Platelet Count 224 10x3/uL (130-400); RBC Distribution Width 13.1 % (11.5-14.5); White Blood Cell (WBC) Count 10.3 10x3/uL (4.8-10.8)
[2023-06-11 11:11] LABS: Troponin I Less than 0.010 ng/mL (< 0.028)
[2023-06-11 11:23] LABS: ALT (SGPT) 9 U/L (8-55); AST (SGOT) 17 U/L (5-34); Albumin 4.2 g/dL (3.4-4.8); Alkaline Phosphatase 101 U/L (40-110); Anion Gap 18 mmol/L (10-20); BUN (Urea Nitrogen) 15 mg/dL (9.8-20.1); Bilirubin, Total 0.2 mg/dL (0.2-1.2); Calc. Creatinine Clearance 0 mL/min (70-130); Calcium 9.2 mg/dL (7.8-10.44); Carbon Dioxide 23 mmol/L (23-31); Chloride 103 mmol/L (98-107); Estimated GFR 73; Globulin 2.8 g/dL (2.4-3.5); Glucose 115 mg/dL (80-115); Lipase Less than 4 U/L (8-78); Potassium 5.7 mmol/L (3.5-5.1); Sodium 138 mmol/L (136-145)
[2023-06-11] MEDS ORDERED: Acetaminophen 500 MG TAB ONE (12:12)
== END 2023-06-11 12:30 | disposition home or self-care (01) ==
LOC: ERS 09:19
DX: M25.512 Pain in left shoulder (principal); E87.5 Hyperkalemia; I10 Essential (primary) hypertension; Z87.891 Personal history of nicotine dependence
CPT/HCPCS: 36415; 71046; 80053; 83605; 83690; 83880; 84484; 85025; 93005

== ENCOUNTER 2024-01-21 13:09 | Emergency (ER) | payer OTHER ==
[2024-01-21] MEDS ORDERED: HYDROcodone/Acetaminophen 5/325 mg Tablet ONE (15:18)
[2024-01-21] MEDS ORDERED: Ipratropium/Albuterol 3 ML NEB ONE (15:23)
== END 2024-01-21 17:22 | disposition home or self-care (01) ==
LOC: ERS 13:09
DX: M25.512 Pain in left shoulder (principal); J44.9 Chronic obstructive pulmonary disease, unspecified; I10 Essential (primary) hypertension; Z87.891 Personal history of nicotine dependence
CPT/HCPCS: J7620

== ENCOUNTER 2025-03-28 18:53 | Emergency (ER) | payer OTHER ==
[2025-03-28] MEDS ORDERED: HYDROcodone/Acetaminophen 10/325 mg Tablet ONE ×2 (19:46→22:47)
[2025-03-28] MEDS ORDERED: Aspirin Chewable 81 MG TAB ONE (22:47)
== END 2025-03-28 22:42 | disposition home or self-care (01) ==
LOC: ERS 18:53
DX: S42.212A Unspecified displaced fracture of surgical neck of left humerus, initial encounter for closed fracture (principal); S52.122A Displaced fracture of head of left radius, initial encounter for closed fracture; I11.0 Hypertensive heart disease with heart failure; I50.9 Heart failure, unspecified; F17.210 Nicotine dependence, cigarettes, uncomplicated; W18.30XA Fall on same level, unspecified, initial encounter; Y93.01 Activity, walking, marching and hiking
CPT/HCPCS: 29105; 73030; 73080; 73110; 96374; 96376; 99283; J3010